=== PATIENT | female | born 1935 | race Caucasian/White ===

== ENCOUNTER 2022-10-26 16:19 | Observation (INO) | payer OTHER ==
[2022-10-26] MEDS ORDERED: HYDROcodone/APAP 7.5-325MG 1 EACH TAB PO ONE (17:26)
[2022-10-26 18:01] LABS: Basophils % (A) 0 %; Eosinophils # (A) 0.2 k/uL (0-0.7); Eosinophils % (A) 1 %; HCT 43.2 % (34.0-46.0); HGB 14.5 gm/dL (11.4-16.0); Lymphocytes # (A) 0.9 k/uL (1.0-4.8); Lymphocytes % (A) 7 %; MCH 31.5 pg (25.0-35.0); MCHC 33.6 g/dL (31.0-37.0); MCV 93.9 fL (80.0-100.0); Mean Platelet Volume 9.1; Monocytes # (A) 0.6 k/uL (0-1.0); Monocytes % (A) 4 %; Neutrophils # (A) 11.2 k/uL (1.3-7.7); Neutrophils % (A) 87 %; Platelet Count 174 k/uL (150-450); RDW 13.7 % (11.5-15.5); WBC 12.9 k/uL (3.8-10.6)
[2022-10-26 18:18] LABS: ALT 34 U/L (4-34); AST 38 U/L (14-36); African American GFR (CKD) >90 (>60 ml/min/1.73 sqM); Albumin 3.6 g/dL (3.5-5.0); Alkaline Phosphatase 72 U/L (38-126); Anion Gap 5 mmol/L; Blood Urea Nitrogen 15 mg/dL (7-17); Calcium 8.7 mg/dL (8.4-10.2); Carbon Dioxide 26 mmol/L (22-30); Chloride 107 mmol/L (98-107); Glucose 142 mg/dL (74-99); Non-African American GFR(CKD) 80 (>60 ml/min/1.73 sqM); Potassium 3.7 mmol/L (3.5-5.1); Sodium 138 mmol/L (137-145); Total Bilirubin 0.6 mg/dL (0.2-1.3); Total Protein 5.8 g/dL (6.3-8.2)
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
[2022-10-26] MEDS ORDERED: KETOROLAC 15 MG/ML 1 ML VIAL IVP PRN (20:59)
[2022-10-26] MEDS ORDERED: NALOXONE 0.4 MG/ML 1 ML VIAL IV PRN (20:59)
[2022-10-26] MEDS ORDERED: ONDANSETRON 4 MG/2 ML VIAL IVP PRN (20:59)
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
[2022-10-26] MEDS: HYDROmorphone 1 MG/ML 1 ML SYRINGE IVP PRN (22:20)
[2022-10-26] MEDS: CHOLECALCIFEROL 25 MCG (1000 IU) TABLET PO SCH (23:26)
[2022-10-26] MEDS: glipiZIDE 5 MG TAB PO SCH (23:26)
[2022-10-26] MEDS: DOCUSATE 100 MG CAP PO SCH (23:26)
[2022-10-26] MEDS: LOSARTAN 50 MG TAB PO SCH (23:26)
[2022-10-26] MEDS: PARoxetine 10 MG TAB PO SCH (23:31)
[2022-10-27] MEDS: HYDROmorphone 1 MG/ML 1 ML SYRINGE IVP PRN ×2 (03:03→09:52)
[2022-10-27 05:56] LABS: Basophils % (A) 0 %; Eosinophils # (A) 0.1 k/uL (0-0.7); Eosinophils % (A) 1 %; HCT 42.9 % (34.0-46.0); Lymphocytes # (A) 0.8 k/uL (1.0-4.8); Lymphocytes % (A) 7 %; MCHC 32.7 g/dL (31.0-37.0); MCV 94.7 fL (80.0-100.0); Monocytes # (A) 0.5 k/uL (0-1.0); Monocytes % (A) 5 %; Neutrophils # (A) 9.1 k/uL (1.3-7.7); Neutrophils % (A) 86 %; Platelet Count 171 k/uL (150-450); RBC 4.53 m/uL (3.80-5.40); RDW 13.5 % (11.5-15.5); WBC 10.5 k/uL (3.8-10.6)
[2022-10-27 06:12] LABS: African American GFR (CKD) >90 (>60 ml/min/1.73 sqM); Anion Gap 4 mmol/L; Blood Urea Nitrogen 11 mg/dL (7-17); Calcium 8.4 mg/dL (8.4-10.2); Carbon Dioxide 28 mmol/L (22-30); Chloride 104 mmol/L (98-107); Glucose 152 mg/dL (74-99); Non-African American GFR(CKD) 83 (>60 ml/min/1.73 sqM); Potassium 4.1 mmol/L (3.5-5.1); Sodium 136 mmol/L (137-145)
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
[2022-10-27] MEDS ORDERED: ACETAMINOPHEN TAB 325 MG TAB PO PRN (12:07)
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
[2022-10-27] MEDS: traMADol 50 MG TAB PO SCH ×2 (16:31→20:36)
[2022-10-27] MEDS: cloNIDine HCL 0.2 MG TAB PO PRN (17:21)
[2022-10-27] MEDS ORDERED: cloNIDine HCL 0.1 MG TAB PO STA (18:40)
[2022-10-27] MEDS: LOSARTAN 50 MG TAB PO SCH (20:35)
[2022-10-27] MEDS: hydroCHLOROthiazide 12.5 MG CAP PO SCH (20:35)
[2022-10-27] MEDS: DOCUSATE 100 MG CAP PO SCH (20:35)
[2022-10-27] MEDS: PARoxetine 10 MG TAB PO SCH (20:35)
[2022-10-27] MEDS: CHOLECALCIFEROL 25 MCG (1000 IU) TABLET PO SCH (20:35)
[2022-10-27] MEDS: glipiZIDE 5 MG TAB PO SCH (20:36)
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
[2022-10-28] MEDS: traMADol 50 MG TAB PO SCH ×3 (09:36→20:36)
[2022-10-28] MEDS: SENNOSIDES 8.6 MG TAB PO SCH (09:36)
[2022-10-28] MEDS: cloNIDine HCL 0.2 MG TAB PO PRN (09:40)
--- NOTE | 2022-10-28 15:12 | P.PN ---
Subjective Progress Note Date: 10/28/22 No new complaints. medically stable for discharge. BPs have improved from 200s to 160s-170s Gen: awake, alert HEENT: normocephalic, atraumatic, good hearing acuity, moist mucous membranes Resp: good air exchange, breathing comfortably with no accessory muscle use CVS: good distal perfusion x 4, GI: soft, NTTP, ND : no SPT, no CVAT, dean catheter not present MSK: no pitting edema, no clubbing Neuro: non-focal, moving all extremities Psych: cooperative, euthymic mood Labs and imaging as above Assessment: T8 compression fracture, L1 compression fracture Brief hypoxemic respiratory failure, Likely lung contusion, improving Elevation of AST, likely liver contusion, improving Hypertension Diabetes type 2 Katia's, history of Plan: Vital signs reviewed and noted in the HPI Lab work reviewed and noted in the HPI CT lumbar spine, chest, abdomen, pelvis were reviewed and noted in HPI Patient is medically stable Added clonidine 0.1mg TID PRN for SBP > 170, DBP > 100 Continue home glipizide, hydrochlorothiazide, losartan Toradol 15 mg every 6 hours when necessary for pain Continue paroxetine 5 mg at bedtime Obtain TSH Patient is full code Objective - Vital Signs Vital signs: Vital Signs Temp 98.3 F 10/28/22 13:34 Pulse 57 L 10/28/22 13:34 Resp 17 10/28/22 13:34 BP 148/75 10/28/22 13:34 Pulse Ox 92 L 10/28/22 13:34 FiO2 Intake & Output 10/27/22 10/28/22 10/28/22 18:59 06:59 18:59 Other: # Voids 2 2 - Labs CBC & Chem 7: 10/27/22 05:13 10/27/22 05:13
[2022-10-28] MEDS: DOCUSATE 100 MG CAP PO SCH (20:36)
[2022-10-28] MEDS: glipiZIDE 5 MG TAB PO SCH (20:36)
[2022-10-28] MEDS: CHOLECALCIFEROL 25 MCG (1000 IU) TABLET PO SCH (20:36)
[2022-10-28] MEDS: hydroCHLOROthiazide 12.5 MG CAP PO SCH (20:38)
[2022-10-28] MEDS: LOSARTAN 50 MG TAB PO SCH (20:38)
[2022-10-28] MEDS: PARoxetine 10 MG TAB PO SCH (20:38)
[2022-10-29] MEDS: traMADol 50 MG TAB PO SCH ×2 (07:28→14:57)
[2022-10-29 07:59] VITALS: RESP 18
[2022-10-29] MEDS: SENNOSIDES 8.6 MG TAB PO SCH (09:04)
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
--- NOTE | 2022-10-29 13:13 | XR ---
EXAMINATION TYPE: XR chest 1V portable DATE OF EXAM: 10/29/2022 1:05 PM COMPARISON: Chest 10/26/2022 CT TECHNIQUE: XR chest 1V portable Frontal view of the chest. CLINICAL INDICATION:Female, 86 years old with history of chest pain; FINDINGS: Lungs/Pleura: There is flattening of the diaphragm with increased lucency of the lungs. No evidence o f pneumothorax, pleural effusion or focal consolidation. Pulmonary vascularity: Unremarkable. Heart/mediastinum: Cardiomediastinal silhouette is unremarkable. Atherosclerotic calcifications are seen in the aorta. Musculoskeletal: No acute osseous pathology. Other findings: None right breast implant. IMPRESSION: 1. No acute cardiopulmonary disease process. 2. COPD changes.
[2022-10-29 14:37] VITALS: BP 153/96; PULSE 63; TEMP 98.1
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
== END 2022-10-29 15:24 | disposition home or self-care (01) ==
LOC: EC 16:19 → 4SSUR 21:06
PROVIDERS: ADMIT Orthopaedic Surgery Hand Surgery; ATTEND Orthopaedic Surgery Hand Surgery
DX: S22.069G Unspecified fracture of T7-T8 vertebra, subsequent encounter for fracture with delayed healing (principal); S32.019A Unspecified fracture of first lumbar vertebra, initial encounter for closed fracture; R07.81 Pleurodynia; V89.2XXA Person injured in unspecified motor-vehicle accident, traffic, initial encounter; J96.91 Respiratory failure, unspecified with hypoxia; R74.8 Abnormal levels of other serum enzymes; E11.9 Type 2 diabetes mellitus without complications; I10 Essential (primary) hypertension; E05.00 Thyrotoxicosis with diffuse goiter without thyrotoxic crisis or storm; E06.3 Autoimmune thyroiditis; Z79.84 Long term (current) use of oral hypoglycemic drugs; Z79.899 Other long term (current) drug therapy; Z88.0 Allergy status to penicillin
CPT/HCPCS: 96376; 96374; 99285; 36415; 93005; 97116; 97162; 97535 ×2; 97166; 80053; 80048; 84443; 85025 ×2; 71045; 72132; 71260; 74177; G0378 ×4; L0120; J1170 ×2; Q9967

== ENCOUNTER 2022-11-16 13:21 | Inpatient (IN) | payer OTHER, MEDICARE ==
[2022-11-16 14:20] LABS: Appearance,Urine Clear (Clear); Bilirubin,Urine Negative (Negative); Blood,Urine Negative (Negative); Color,Urine Yellow; Glucose,Urine (UA) Negative (Negative); Hyaline Casts,Urine 1 /lpf (0-2); Ketones,Urine 1+ (Negative); Leukocyte Esterase,Urine Negative (Negative); Mucus,Urine Few /hpf; Nitrite,Urine Negative (Negative); PH, Urine 5.5 (5.0-8.0); Protein,Urine 1+ (Negative); RBC,Urine 1 /hpf (0-5); Specific Gravity,Urine 1.019 (1.001-1.035); Squamous Epithelial Cell,Urine <1 /hpf (0-4); Urobilinogen,Urine <2.0 mg/dL (<2.0); WBC,Urine 2 /hpf (0-5)
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
[2022-11-16] MEDS ORDERED: ONDANSETRON 4 MG/2 ML VIAL IVP PRN (14:35)
[2022-11-16] MEDS ORDERED: HYDROcodone/APAP 5-325MG 1 EACH TAB PO PRN (14:35)
[2022-11-16] MEDS ORDERED: NALOXONE 0.4 MG/ML 1 ML VIAL IV PRN (14:35)
[2022-11-16 14:58] LABS: Basophils % (A) 0 %; Eosinophils # (A) 0.1 k/uL (0-0.7); Eosinophils % (A) 1 %; HCT 44.1 % (34.0-46.0); HGB 15.1 gm/dL (11.4-16.0); Lymphocytes # (A) 1.1 k/uL (1.0-4.8); Lymphocytes % (A) 14 %; MCHC 34.3 g/dL (31.0-37.0); MCV 90.4 fL (80.0-100.0); Mean Platelet Volume 8.3; Monocytes # (A) 0.5 k/uL (0-1.0); Monocytes % (A) 6 %; Neutrophils # (A) 6.3 k/uL (1.3-7.7); Neutrophils % (A) 77 %; Platelet Count 232 k/uL (150-450); RBC 4.88 m/uL (3.80-5.40); RDW 13.6 % (11.5-15.5); WBC 8.1 k/uL (3.8-10.6)
[2022-11-16 15:02] LABS: INR 0.9 (<1.2); Partial Thromboplastin Time 23.2 sec (22.0-30.0); Prothrombin Time 10.1 sec (9.0-12.0)
[2022-11-16 15:03] LABS: ALT 19 U/L (4-34); AST 22 U/L (14-36); African American GFR (CKD) >90 (>60 ml/min/1.73 sqM); Alkaline Phosphatase 138 U/L (38-126); Anion Gap 9 mmol/L; Blood Urea Nitrogen 15 mg/dL (7-17); Calcium 9.2 mg/dL (8.4-10.2); Carbon Dioxide 25 mmol/L (22-30); Chloride 103 mmol/L (98-107); Glucose 156 mg/dL (74-99); Non-African American GFR(CKD) 85 (>60 ml/min/1.73 sqM); Potassium 3.7 mmol/L (3.5-5.1); Sodium 137 mmol/L (137-145); Total Bilirubin 0.9 mg/dL (0.2-1.3); Total Protein 6.4 g/dL (6.3-8.2)
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
[2022-11-16] MEDS ORDERED: DEXTROSE 50% SYRINGE 50 ML IVP PRN ×2 (21:35)
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
[2022-11-16] MEDS: LOSARTAN 50 MG TAB PO SCH (21:59)
[2022-11-16] MEDS: SODIUM CHLORIDE 0.9% 1,000 ML IV SCH (21:59)
[2022-11-16] MEDS: PARoxetine 10 MG TAB PO SCH (21:59)
[2022-11-17] MEDS: HYDROmorphone 0.5 MG/0.5 ML SYRINGE IVP PRN (03:31)
[2022-11-17 07:39] LABS: Glucose,Whole Blood 88 mg/dL (70-110)
[2022-11-17] MEDS: INSULIN ASPART (NovoLOG) 100 UNIT/ML VIAL SQ SCH ×4 (08:04→21:49)
[2022-11-17 08:57] LABS: Glucose,Whole Blood 207 mg/dL (70-110)
[2022-11-17] MEDS ORDERED: hydrALAZINE HCL 20 MG/ML 1 ML VIAL IVP PRN (09:36)
[2022-11-17] MEDS ORDERED: hydrALAZINE HCL 20 MG/ML 1 ML VIAL IVP STA (09:38)
[2022-11-17 12:05] LABS: Glucose,Whole Blood 96 mg/dL (70-110)
[2022-11-17 12:09] LABS: Blood Urea Nitrogen 11.2 mg/dL (9.0-27.0); Calcium 9.2 mg/dL (8.7-10.3); Carbon Dioxide 26.2 mmol/L (21.6-31.8); Chloride 106 mmol/L (96-109); Glucose 79 mg/dL (70-110); Potassium 3.5 mmol/L (3.5-5.5); Sodium 143 mmol/L (135-145)
--- NOTE | 2022-11-17 12:41 | P.PN ---
Subjective Progress Note Date: 11/17/22 Principal diagnosis: T8 vertebral compression fracture Patient seen at bedside this morning in the emergency department lying semirecumbent position with daughter present during encounter. Patient says she is still having met back pain at this time. Patient is wondering when she will be able to go to surgery later today. Patient denies any changes since yesterday. Patient denies any numbness/tingling down the legs. Patient denies any saddle anesthesia/loss of bowel or bladder control. Objective - Vital Signs Vital signs: Vital Signs Temp 97.9 F 11/17/22 09:34 Pulse 72 11/17/22 09:34 Resp 16 11/17/22 09:34 BP 190/85 11/17/22 09:34 Pulse Ox 96 11/17/22 09:34 FiO2 Intake & Output 11/16/22 11/17/22 11/17/22 18:59 06:59 18:59 Weight 71.668 kg - Exam Negative for any open fractures, significant erythema/ecchymosis/open wounds. Sensation is equal, symmetric, by intact throughout the lower extremities. There is moderate tenderness to palpation at midline and paraspinal region at the thoracic spine. Mild generalized tenderness to patient throughout midline at lower lumbar spine. Patient has full range of motion bilateral upper and lower extremities on exam. 4+/5 in all major motor groups in bilateral upper and lower extremities. Neurovascular status intact bilaterally. Cap refill under 3 seconds in digits the upper extremities. Radial pulses 2+ bilaterally. Negative Homans bilaterally. Negative straight leg raise bilaterally - Labs CBC & Chem 7: 11/16/22 14:37 11/17/22 06:14 Labs: Abnormal Lab Results - Last 24 Hours (Table) 11/16/22 11/16/22 11/17/22 Range/Units 13:56 14:37 08:55 Glucose 156 H (74-99) mg/dL POC Glucose (mg/dL) 207 H (70-110) mg/dL Alkaline Phosphatase 138 H (38-126) U/L Urine Protein 1+ H (Negative) Urine Ketones 1+ H (Negative) Urine Mucus Few H (None) /hpf Assessment and Plan Assessment: 1. T8 vertebral compression fracture Plan: 1. T8 vertebral compression fracture - no changes from yesterday. Patient to go to surgery later today for kyphoplasty of T8 and T7-T9 stabilization for fracture. Remain nothing by mouth at this time. [place] blood thinners at this time. We're waiting for bed upstairs. We'll continue to follow patient In hospital. 2. Appreciate medical management 3. Pain management - norco 4. DVT prophylaxis - withhold thinners at this time 5. GI prophylaxis recs 6. PT/OT - weightbearing as tolerated with walker and brace on while up and about 7. Encourage incentive spirometer use Time with Patient: Less than 30
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
--- NOTE | 2022-11-17 15:43 | P.PN ---
Progress Note - Text Progress Note Date: 11/17/22 Spine Surgery Clinical and Risk Review Chica Trejo is a [Demographic] presenting for evaluation of [chief complaint] . It was my pleasure to have seen and examined Chica Trejo. In our visit today we have had a chance to go over subjective complaints, physical examination findings and treatments including the natural course history without intervention and various interventional options. The patients imaging demonstrates progressive collapse of T8 due to fracture with kyphosis, severe, back pain T and L. L1 VCF with 30% height loss noted as well. . On physical exam, Chica Trejo demonstrates Severe mid and low back pain that precludes her from doing any ADLs with increased pain over the past week which has not gotten better with conservative measures. I have explained to the patient that as their condition progresses it will cause further neurological deficits and eventual paralysis. Based on the patients imaging, physical exam, and the rapid progression and disabling nature of their symptoms, at this time I recommend surgery in the form or a: T8 open treatment with stabilization and kyphoplasty; possible L1 kyphoplasty and biopsy. I dis cussed the risk and benefits of this procedure at length with Chica Trejo. The patient and her daughters at bedside agreed to considered pursuing the procedure abovementioned. Prior to surgery, she should follow up with her PCP (Cardio, ID, IM etc) for clearance. Questions were invited and answered, and the patient wishes to proceed as outlined below. Currently, I am recommendin. T8 open treatment with stabilization and kyphoplasty; possible L1 kyphoplasty and biopsy 2. Follow up with PCP for surgical clearance 3. Review of surgical risks and benefits as well as an educational packet on the proposed surgical procedure. Risks: All surgical procedures come with inherent risks, including those related to positioning, anesthesia, intraoperative findings, and postoperative complications. It is important to understand that surgery does not come with any guarantee of a successful outcome as complications and adverse events are always possible. The patient was given a handout in office today discussing the surgical procedure and risks associated with the intervention, both of which were discussed with the patient. These risks include but are not limited to the following: * Experiencing same, different or even worse symptoms in back, neck, arms, or legs compared to before surgery. * Requiring further surgery or other forms of treatment presently or at some time in the future at same or other levels of the intended spine surgery. * On an extreme but fortunately relatively rare basis severe complication such as blindness, stroke, heart attack, temporary and/or permanent nerve injury, paralysis, coma, or may occur, sometimes without known explanation. * Surgical complications may include but are not limited to risk of infection, fluid accumulation in the surgical dissection site, including a seroma or hematoma, that requires additional surgery, wound drainage, bleeding, new numbness or weakness, vision changes/loss, spinal fluid leakage, non-healing and/or infected incision, headaches, difficulty or inability to swallow, hoarseness, hemopneumothorax, pneumothorax, impotence, retrograde ejaculation, vaginal dryness; injury to nerves, spinal cord, blood vessels, lymphatics or other vital organs (i.e., bowel injury, injury to the great vessels); heterotopic bone formation; complications related to the hardware such as screws, rods, cages including misplaced hardware, device failure, instrumentation at the wrong spine level, hardware fracture/breakage, or hardware loosening; vertebral failure of the spinal column above or below the newly placed hardware; retained surgical instrumentations or devices and the need for further surgery. * Medical risks of the planned spine surgery include but are not limited to generalized Infections to the whole body or local areas outside of the surgical site (sepsis), heart attack, bleeding, anaphylaxis, meningitis, seizure, epilepsy, hearing loss, burn burciaga, laceration of the head or other a reas of the body, bruising, hypersensitivity of the skin, bladder over distension; allergic reaction; shoulder injury related to positioning; fat, blood and air clots to other areas of the body like heart, lungs, brain; failure of internal organs such as lungs, kidneys, liver and excessive bleeding. If blood transfusions are necessary, note that transfusions may cause intolerance reactions such as anaphylaxis or other complex reactions. * Despite best efforts, the results of spine surgery might not heal in terms of bone, soft tissues such as skin, fascia, ligaments, and joints. Additionally, in order to achieve best possible results, spine surgery may be carried out beyond the initially planned levels and involve decompression, fusion including insertion of hardware at levels other than the original intended area of surgical interest change some portions of the procedure in order to ensure the best possible outcomes. * With spine surgery and spinal fusion, there are different off label uses of instrumentation (devices, implants and hardware) as well as biological substances (bone morphogenic proteins, demineralized bone matrix) as well as using extra bone from allograft sources (i.e. cadaver bone) or autograft (iliac crest bone, ribs, or the spine itself). The patient has been given information about these practices and their inherent risks and benefits. The patient has had a chance to review all the listed information, has been given print outs detailing this information, and has had all his/her questions answered to their satisfaction. It was my pleasure to have seen and examined Chica Trejo. In our visit today we have had a chance to go over my understanding of our patient's current condition, the natural course history without intervention and various interventional options. Questions were invited and answered, and the patient wishes to proceed as outlined above. I have seen and examined the patient for 25 minutes and we have spent more than 50% of the time in repeat and detailed counseling about the patient's condition, its natural course history with out and as much as can be predicted with surgery and re-review of various surgical treatment options. In conclusion, Chica Trejo and daughters at bedside requested we proceed with the above suggested surgery and are willing to accept risks and limitations of the suggested surgery as nature of the disease process and our best attempts at treatment for the condition. Thank you again for allowing us to be part of your patient's care. Please don't hesitate to contact me if you have any further questions. Signed and authenticated by: Adria Mejia [facility] [address] [facility], [address] [address]
[2022-11-17] MEDS ORDERED: IV FLUID CONTINUATION 125 ML IV ONE (15:50)
[2022-11-17] MEDS ORDERED: LACTATED RINGERS 1,000 ML IV ONE ×2 (15:51→15:52)
[2022-11-17] MEDS ORDERED: ONDANSETRON 4 MG/2 ML VIAL IVP ONE (15:56)
[2022-11-17 15:58] LABS: Glucose,Whole Blood 92 mg/dL (70-110)
[2022-11-17] MEDS ORDERED: GLYCOPYRROLATE 0.2 MG/ML 2 ML VIAL ONE (16:33)
[2022-11-17] MEDS ORDERED: fentaNYL (PF) 50 MCG/ML 2 ML AMP ONE (16:33)
[2022-11-17] MEDS ORDERED: PHENYLEPHRINE-0.9% NACL SYG 1,000 MCG/10 ML SYRINGE ONE (16:33)
[2022-11-17] MEDS ORDERED: LIDOCAINE 2% INJ 20 MG/ML (2 ML VIAL) ONE (16:33)
[2022-11-17] MEDS ORDERED: ROCURONIUM 10 MG/ML (5 ML VIAL) IV ONE (16:33)
[2022-11-17] MEDS ORDERED: SUCCINYLCHOLINE CHLORIDE 200 MG/10 ML VIAL IV ONE (16:33)
[2022-11-17] MEDS ORDERED: HYDROmorphone (PF) 1 MG/ML ONE (16:33)
[2022-11-17] MEDS ORDERED: PROPOFOL 10 MG/ML 20 ML VIAL IV ONE (16:33)
[2022-11-17] MEDS ORDERED: NEOSTIGMINE 1 MG/ML 10 ML VIAL ONE (16:33)
[2022-11-17] MEDS ORDERED: SODIUM CHLORIDE 0.9% 50 ML with ceFAZolin 2 GM IV ONE ×2 (16:38)
[2022-11-17] MEDS ORDERED: LIDOCAINE 0.5%-EPI 1:200,000 50 ML VIAL SQ ONE ×2 (17:14)
[2022-11-17] MEDS ORDERED: TRANEXAMIC 1,000 MG/100ML-NACL 1,000 MG in SALINE 1 100ML.BAG IVPB ONE (17:15)
[2022-11-17] MEDS ORDERED: IOPAMIDOL M200 10 ML VIAL MISCELLANE ONE ×2 (17:15)
[2022-11-17] MEDS ORDERED: SENNOSIDES-DOCUSATE SODIUM 1 EACH TAB PO PRN (18:15)
[2022-11-17] MEDS ORDERED: ONDANSETRON 4 MG/2 ML VIAL IVP PRN (18:15)
[2022-11-17] MEDS ORDERED: MAGNESIUM HYDROXIDE 2,400 MG/30 ML CUP PO PRN (18:15)
[2022-11-17] MEDS ORDERED: HYDROcodone/APAP 7.5-325MG 1 EACH TAB PO PRN (18:18)
--- NOTE | 2022-11-17 18:28 | XR ---
Intraoperative/procedural fluoroscopic services were provided for T8 kyphoplasty. Total fluoroscopy t arlen is 3 minutes 8 seconds with a total of 9 submitted images to PACS. Total DAP 9.0165 Gycm2. Aidee bobby see the operative note for further details.
[2022-11-17] MEDS ORDERED: HYDROmorphone 0.5 MG/0.5 ML SYRINGE IVP ONE ×3 (18:39→18:58)
[2022-11-17 19:44] LABS: Glucose,Whole Blood 149 mg/dL (70-110)
[2022-11-17 21:10] LABS: Glucose,Whole Blood 186 mg/dL (70-110)
[2022-11-17] MEDS: SODIUM CHLORIDE 0.9% 1,000 ML IV SCH (21:11)
[2022-11-17] MEDS: DOCUSATE 100 MG CAP PO SCH (21:48)
[2022-11-17] MEDS: LOSARTAN 50 MG TAB PO SCH (21:49)
[2022-11-17] MEDS: PARoxetine 10 MG TAB PO SCH (21:49)
[2022-11-18] MEDS: ACETAMINOPHEN TAB 325 MG TAB PO SCH ×4 (00:08→17:24)
[2022-11-18] MEDS: HYDROmorphone 1 MG/ML 1 ML SYRINGE IVP PRN ×2 (00:17→10:16)
[2022-11-18] MEDS: SODIUM CHLORIDE 0.9% 1,000 ML IV SCH ×2 (00:39→13:29)
[2022-11-18] MEDS: HYDROmorphone 0.5 MG/0.5 ML SYRINGE IVP PRN ×2 (04:14→19:07)
[2022-11-18 06:20] LABS: Glucose,Whole Blood 146 mg/dL (70-110)
[2022-11-18] MEDS: INSULIN ASPART (NovoLOG) 100 UNIT/ML VIAL SQ SCH ×4 (06:22→21:31)
[2022-11-18 06:56] LABS: Glucose,Whole Blood 159 mg/dL (70-110)
[2022-11-18 07:37] LABS: Basophils % (A) 0 %; Eosinophils # (A) 0.1 k/uL (0-0.7); Eosinophils % (A) 0 %; HCT 43.7 % (34.0-46.0); HGB 14.4 gm/dL (11.4-16.0); Lymphocytes # (A) 0.7 k/uL (1.0-4.8); Lymphocytes % (A) 5 %; MCH 30.6 pg (25.0-35.0); MCV 92.7 fL (80.0-100.0); Mean Platelet Volume 8.3; Monocytes # (A) 0.8 k/uL (0-1.0); Monocytes % (A) 6 %; Neutrophils # (A) 11.9 k/uL (1.3-7.7); Neutrophils % (A) 88 %; Platelet Count 211 k/uL (150-450); RBC 4.71 m/uL (3.80-5.40); RDW 13.5 % (11.5-15.5); WBC 13.6 k/uL (3.8-10.6)
[2022-11-18 07:56] LABS: African American GFR (CKD) >90 (>60 ml/min/1.73 sqM); Anion Gap 7 mmol/L; Blood Urea Nitrogen 11 mg/dL (7-17); Calcium 8.8 mg/dL (8.4-10.2); Carbon Dioxide 24 mmol/L (22-30); Chloride 104 mmol/L (98-107); Glucose 160 mg/dL (74-99); Non-African American GFR(CKD) 85 (>60 ml/min/1.73 sqM); Potassium 4.4 mmol/L (3.5-5.1); Sodium 135 mmol/L (137-145)
--- NOTE | 2022-11-18 08:33 | P.OP ---
Date of Procedure: 11/17/22 Preoperative Diagnosis: 1. T8 COMPRESSION FRACTURE WITH PROGRESSIVE COMPRESSION AND KYPHOSIS 2. MID BACK PAIN 3. LOW BACK PAIN 4. DEBILITY 5. L1 VCF Postoperative Diagnosis: 1. T8 COMPRESSION FRACTURE WITH PROGRESSIVE COMPRESSION AND KYPHOSIS 2. MID BACK PAIN 3. LOW BACK PAIN 4. DEBILITY 5. L1 VCF Procedure(s) Performed: 1. OPEN TREATMENT T8 FRACTURE 2. T7-T9 INSTRUMENTED STABILIZATION 3. T7 KYPHOPLASTY WITH BIOPSY USE OF IONM Implants: -EVEREST SCREWS AND RODS -WANDA CEMENT Anesthesia: GAVIN Surgeon: Adria Loera Shift Stacker #1: Fritz Barrera (Was present and assisted with all aspects of the case from position to closure) Estimated Blood Loss (ml): 50 IV fluids (ml): 1,200 Urine output (ml): 250 Pathology: none sent Condition: stable Disposition: PACU Indications for Procedure: Chica Trejo is a 86 yo female presenting for evaluation of mid back pain that is severe. It was my pleasure to have seen and examined Chica Trejo. In our visit today we have had a chance to go over subjective complaints, physical examination findings and treatments including the natural course history without intervention and various interventional options. The patients imaging demonstrates progressive collapse of T8 due to fracture with kyphosis, severe, back pain T and L. L1 VCF with 30% height loss noted as well. . On physical exam, Chica Trejo demonstrates Severe mid and low back pain that precludes her from doing any ADLs with increased pain over the past week which has not gotten better with conservative measures. I have explained to the patient that as their condition progresses it will cause further neurological deficits and eventual paralysis. Based on the patients imaging, physical exam, and the rapid progression and disabling nature of their symptoms, at this time I recommend surgery in the form or a: T8 open treatment with stabilization and kyphoplasty; possible L1 kyphoplasty and biopsy. I discussed the risk and benefits of this procedure at length with Chica Trejo. The patient and her daughters at bedside agreed to considered pursuing the procedure abovementioned. Prior to surgery, she should follow up with her PCP (Cardio, ID, IM etc) for clearance. Questions were invited and answered, and the patient wishes to proceed as outlined below. Currently, I am recommendin. T8 open treatment with stabilization and kyphoplasty; possible L1 kyphoplasty and biopsy Description of Procedure: T8 ORIF (T7-9); T8 kypho The patient was seen and examined in the preoperative area. All preoperative protocols were followed. Informed consent was obtained, risks and benefits of the procedure were discussed at length. Risks including bleeding infection damage to the surrounding tissue and risk of reoperation were discussed with the patient. Risk of anesthesia up to and including was discussed with the patient. These are outlined in the risk review. They were willing to accept these risks and all of the risks of surgery. The patient was given a weight- based dose of antibiotics in the form of 2 g Ancef. The patient was seen and evaluated by the anesthesia team who deemed them fit for surgery. The site was marked, the patient was willing to proceed with the procedure. The patient was transferred to the operative suite by the Department of anesthesia. They were then drifted off to sleep by the department anesthesia and GETA was performed. The patient tolerated this well. [Lopez catheter was placed by nursing staff, atraumatically]. Once confirmation of lines and ventilation the patient was transferred to a [prone Uriah table very carefully]. All bony prominences including wrists, elbows, axilla, chest, hips, and thighs, and feet were padded very well. Special attention was paid to the genitalia and these were padded accordingly. SCDs were placed on bilateral lower extremities and were connected. Arms were well padded and placed [on arm boards up and out in the 90/90 position]. Once in position, again we confirmed good ventilation capabilities and that lines were running appropriately. The patient's thoracolumbar spine was then exposed. 1010s were placed outlining the incision site. Standard alcohol was used to clean the incision site and allowed to dry. C-arm was used to needle localize T12 and then biomark the patient and confirm level for incision which was marked with a skin marker. Operative briefing was performed with all teams and everyone in agreement to proceed. The patient was then prepped and draped in a normal sterile fashion. Timeout was then performed and all parties were in agreement with the procedure to be performed. Needle localization was done to identify T8. Under biplanar fluoroscopy we then placed Jamshidis into T9 bilaterally followed by T7 bilaterally. We confirmed as being good position and wires were placed in the void. Then over the wires screws were placed into T6 and T8 bilaterally under lateral fluoroscopic guidance. Once in good position the wires were removed. We then accessed the T8 vertebral body using a Jamshidi and biplanar fluoroscopy. Biopsy was performed of the T8 vertebral body with biopsy needle. Once this was accessed reduction of fractures performed using a kyphoplasty balloon followed by cement. Once this binder was in good position cement was placed into T7 vertebral body. Cement was then placed through fenestrated screws under biplane and pulse lateral fluoroscopy into T7 and T9. In this fashion screws were cemented in position. A ariela was then selected and bent accordingly it was then placed subfascially into the tulip heads of all screws. Set screws were then placed and final tightened into position. Tables broken off the screws. AP and lateral confirmed good placement of hardware with good reduction of fracture. Final imaging confirmed good placement of all hardware good reduction of fracture. The wounds were then copiously irrigated with normal sterile saline. The wounds were closed with 0 Vicryl in deep fascia 2-0 Vicryl superficial subcu and vero in skin. Wound edges approximated very well. Wound was then cleaned and dressed sterilely with an operative foam dressing. The patient was transferred back to their hospital bed atraumatically. Patient was then awakened and extubated by the department of anesthesia having tolerated the procedure very well with no complications. Drain continued to hold suction. They were transferred to the postoperative care unit in stable condition.
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
[2022-11-18 12:00] LABS: Glucose,Whole Blood 135 mg/dL (70-110)
[2022-11-18] MEDS: ENOXAPARIN 40 MG/0.4 ML SYRINGE SQ SCH (13:28)
[2022-11-18] MEDS: PANTOPRAZOLE 40 MG/10 ML VIAL IVP SCH ×3 (13:29→21:43)
[2022-11-18 16:33] LABS: Glucose,Whole Blood 150 mg/dL (70-110)
[2022-11-18] MEDS: HYDROcodone/APAP 5-325MG 1 EACH TAB PO SCH ×2 (16:39→21:43)
[2022-11-18 21:31] LABS: Glucose,Whole Blood 144 mg/dL (70-110)
[2022-11-18] MEDS: LOSARTAN 50 MG TAB PO SCH (21:44)
[2022-11-18] MEDS: PARoxetine 10 MG TAB PO SCH (21:44)
[2022-11-18] MEDS: DOCUSATE 100 MG CAP PO SCH (21:46)
[2022-11-19] MEDS: HYDROcodone/APAP 5-325MG 1 EACH TAB PO SCH ×2 (00:50→04:18)
[2022-11-19] MEDS: ACETAMINOPHEN TAB 325 MG TAB PO SCH ×2 (00:51→04:00)
[2022-11-19] MEDS: SODIUM CHLORIDE 0.9% 1,000 ML IV SCH (00:52)
[2022-11-19] MEDS: HYDROmorphone 1 MG/ML 1 ML SYRINGE IVP PRN ×3 (04:21→21:47)
[2022-11-19] MEDS ORDERED: HYDROcodone/APAP 5-325MG 1 EACH TAB PO PRN (06:04)
[2022-11-19] MEDS ORDERED: ACETAMINOPHEN TAB 325 MG TAB PO PRN (06:04)
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
[2022-11-19 06:31] LABS: Glucose,Whole Blood 106 mg/dL (70-110)
[2022-11-19] MEDS: INSULIN ASPART (NovoLOG) 100 UNIT/ML VIAL SQ SCH ×4 (06:33→20:50)
[2022-11-19 07:15] LABS: Basophils % (A) 0 %; Eosinophils # (A) 0.1 k/uL (0-0.7); Eosinophils % (A) 1 %; HCT 38.1 % (34.0-46.0); Lymphocytes # (A) 0.9 k/uL (1.0-4.8); Lymphocytes % (A) 10 %; MCH 31.6 pg (25.0-35.0); MCHC 34.3 g/dL (31.0-37.0); MCV 92.1 fL (80.0-100.0); Mean Platelet Volume 8.7; Monocytes # (A) 0.6 k/uL (0-1.0); Monocytes % (A) 6 %; Neutrophils # (A) 7.8 k/uL (1.3-7.7); Neutrophils % (A) 82 %; Platelet Count 155 k/uL (150-450); RBC 4.13 m/uL (3.80-5.40); RDW 13.4 % (11.5-15.5); WBC 9.5 k/uL (3.8-10.6)
[2022-11-19 07:42] LABS: African American GFR (CKD) >90 (>60 ml/min/1.73 sqM); Anion Gap 5 mmol/L; Blood Urea Nitrogen 6 mg/dL (7-17); Calcium 8.2 mg/dL (8.4-10.2); Carbon Dioxide 26 mmol/L (22-30); Chloride 105 mmol/L (98-107); Glucose 122 mg/dL (74-99); Non-African American GFR(CKD) 86 (>60 ml/min/1.73 sqM); Potassium 3.1 mmol/L (3.5-5.1); Sodium 136 mmol/L (137-145)
[2022-11-19] MEDS: ENOXAPARIN 40 MG/0.4 ML SYRINGE SQ SCH (08:36)
[2022-11-19] MEDS: PANTOPRAZOLE 40 MG/10 ML VIAL IVP SCH ×2 (08:37→20:17)
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
[2022-11-19] MEDS ORDERED: Potassium Replacement Protocol 1 EACH MISC MISCELLANE PRN (10:47)
[2022-11-19 11:12] LABS: Glucose,Whole Blood 147 mg/dL (70-110)
[2022-11-19] MEDS: HYDROcodone/APAP 10-325MG 1 EACH TAB PO PRN ×3 (12:35→20:16)
[2022-11-19] MEDS: POTASSIUM CHLORIDE ER 20 MEQ TAB.ER PO SCH ×4 (12:35→20:18)
[2022-11-19] MEDS: CYCLOBENZAPRINE 5 MG TAB PO PRN ×2 (12:36→20:16)
[2022-11-19] MEDS ORDERED: BENZOCAINE/MENTHOL LOZENG 1 EACH LOZENGE MUCOUS MEM PRN (15:21)
[2022-11-19 16:06] LABS: Glucose,Whole Blood 151 mg/dL (70-110)
[2022-11-19] MEDS: SENNOSIDES-DOCUSATE SODIUM 1 EACH TAB PO SCH (16:21)
[2022-11-19] MEDS: DOCUSATE 100 MG CAP PO SCH (20:16)
[2022-11-19] MEDS: LOSARTAN 50 MG TAB PO SCH (20:18)
[2022-11-19] MEDS: PARoxetine 10 MG TAB PO SCH (20:19)
[2022-11-19 20:48] LABS: Glucose,Whole Blood 148 mg/dL (70-110)
[2022-11-20] MEDS: HYDROmorphone 1 MG/ML 1 ML SYRINGE IVP PRN ×2 (01:17→06:27)
[2022-11-20 06:09] LABS: Glucose,Whole Blood 132 mg/dL (70-110)
[2022-11-20] MEDS: INSULIN ASPART (NovoLOG) 100 UNIT/ML VIAL SQ SCH ×3 (06:16→17:43)
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
[2022-11-20] MEDS: oxyCODONE-APAP 5-325MG 1 EACH TAB PO PRN ×2 (09:24→15:11)
[2022-11-20] MEDS: PANTOPRAZOLE 40 MG/10 ML VIAL IVP SCH (09:28)
[2022-11-20] MEDS: SENNOSIDES-DOCUSATE SODIUM 1 EACH TAB PO SCH (09:29)
[2022-11-20] MEDS: ENOXAPARIN 40 MG/0.4 ML SYRINGE SQ SCH (09:35)
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
[2022-11-20 11:23] LABS: Glucose,Whole Blood 192 mg/dL (70-110)
[2022-11-20] MEDS ORDERED: KETOROLAC 15 MG/ML 1 ML VIAL IVP SCH (12:45)
[2022-11-20 13:17] LABS: Blood Urea Nitrogen 5.9 mg/dL (9.0-27.0); Calcium 8.4 mg/dL (8.7-10.3); Carbon Dioxide 26.1 mmol/L (21.6-31.8); Chloride 105 mmol/L (96-109); Glucose 138 mg/dL (70-110); Sodium 140 mmol/L (135-145)
[2022-11-20 14:26] VITALS: BP 162/88; PULSE 87; RESP 18; TEMP 97.3
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
[2022-11-20] MEDS ORDERED: traMADol 50 MG TAB PO SCH (16:15)
[2022-11-20 17:19] LABS: Glucose,Whole Blood 141 mg/dL (70-110)
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
== END 2022-11-20 18:58 | DRG 479 ==
LOC: EC 13:21 → 6NMEDSUR 16:25 → OBSVTOIN 16:25 → 6NMEDSUR 20:17 → 4SSUR 11-17 05:36 → 1SOBS 11-17 15:11 → 4SSUR 11-18 18:17
PROVIDERS: ADMIT Internal Medicine; ATTEND Internal Medicine
PROC: 0PS404Z Reposition Thoracic Vertebra with Internal Fixation Device, Open Approach (ICD-10-PCS; principal; 2022-11-17 11:50)
PROC: 0P943ZX Drainage of Thoracic Vertebra, Percutaneous Approach, Diagnostic (ICD-10-PCS; principal; 2022-11-17 11:50)
PROC: 0PS43ZZ Reposition Thoracic Vertebra, Percutaneous Approach (ICD-10-PCS; principal; 2022-11-17 11:50)
PROC: 0PU43JZ Supplement Thoracic Vertebra with Synthetic Substitute, Percutaneous Approach (ICD-10-PCS; principal; 2022-11-17 11:50)
DX: S22.068G Other fracture of T7-T8 thoracic vertebra, subsequent encounter for fracture with delayed healing (principal); S32.018G Other fracture of first lumbar vertebra, subsequent encounter for fracture with delayed healing; V89.2XXD Person injured in unspecified motor-vehicle accident, traffic, subsequent encounter; E11.65 Type 2 diabetes mellitus with hyperglycemia; Z28.310 Unvaccinated for COVID-19; M40.14 Other secondary kyphosis, thoracic region; I10 Essential (primary) hypertension; Q63.1 Lobulated, fused and horseshoe kidney; Z79.84 Long term (current) use of oral hypoglycemic drugs; Z79.899 Other long term (current) drug therapy; Z88.0 Allergy status to penicillin
CPT/HCPCS: 36415; 72070; 80048; 80053; 81001; 83036; 83735; 84484; 85025; 85610; 85730; 86850; 86900; 86901; 88307; 88311; 93005; 94760; 96374; 96375; 99285